=== PATIENT | female | born 1945 | race Caucasian/White ===

== ENCOUNTER → 2020-06-07 | Outpatient (CLI) | payer MEDICARE, OTHER ==
[~2020-06-07] MED LIST: ALEV220T22 PO; ATOR40TA75 PO; BENA10TA PO; BIOT1000 PO; CALC600C3 PO; CENT1TAB PO; CETI-24 PO; VITA100017 PO
== END ==
LOC: EDUNIT# 11:45 → M LABSMTC 12:28
PROVIDERS: ATTEND Anesthesiology
DX: Z20.828 Contact with and (suspected) exposure to other viral communicable diseases (principal)

== ENCOUNTER 2020-06-12 10:10 | Day surgery (SDC) | payer MEDICARE, OTHER ==
[~2020-06-12] VITALS: Ht 160 cm; Wt 65.3 kg
[~2020-06-12 10:10] MED LIST changes: +NS 1,000 ML IV ONE
[2020-06-12] MEDS ORDERED: LIDOCAINE 2% 100MG/5ML SDV (FOR ANES.) As Ordered ONE (10:49)
[2020-06-12] MEDS ORDERED: propofoL 200 MG/20 ML VIAL As Ordered ONE (10:49)
--- NOTE | 2020-06-12 12:53 | ROOR ---
Patient Name: Ivy Diaz Procedure Date: 06/12/2020 12:23 PM Date of : 1945 Age: 74 Room: [facility] Gender: Female Note Status: Finalized Procedure: Colonoscopy Indications: High risk colon cancer surveillance: Personal history of colonic polyps, Family history of advanced adenoma of the colon in a first-degree relative before age 60 years Providers: Jerald CALI MD Referring MD: RDORÍGUEZ CALL MD Requesting Provider: Medicines: Monitored Anesthesia Care Complications: No immediate complications. Procedure: Pre-Anesthesia Assessment: - The heart rate, respiratory rate, oxygen saturations, blood pressure, adequacy of pulmonary ventilation, and response to care were monitored throughout the procedure. The Colonoscope was introduced through the anus and advanced to the terminal ileum, with identification of the appendiceal orifice and IC valve. The colonoscopy was somewhat difficult due to a redundant colon. The patient tolerated the procedure well. The quality of the bowel preparation was good. Findings: The perianal and digital rectal examinations were normal. A 5 mm polyp was found in the splenic flexure. The polyp was sessile. The polyp was removed with a cold snare. Resection and retrieval were complete. Small Internal Hemorrhoids. The colon (entire examined portion) was redundant. Impression: - Redundant colon. - One 5 mm polyp at the splenic flexure, removed with a cold snare. Resected and retrieved. - Small Internal Hemorrhoids. - The colon is otherwise normal. Recommendation: - Repeat colonoscopy in 5 years for surveillance. Procedure Code(s): --- Professional --- 24255, Colonoscopy, flexible; with removal of tumor(s), polyp(s), or other lesion(s) by snare technique Diagnosis Code(s): --- Professional --- Q43.8, Other specified congenital malformations of intestine Z83.71, Family history of colonic polyps K63.5, Polyp of colon Z86.010, Personal history of colonic polyps CPT copyright 2019 [employer]. All rights reserved. The codes documented in this report are preliminary and upon measurement supervisor review may be revised to meet current compliance requirements. Jerald Cali MD Jerald CALI MD 06/12/2020 12:53:12 PM Electronically signed by Jerald CALI MD Number of Addenda: 0 Note Initiated On: 06/12/2020 12:23 PM Estimated Blood Loss: Estimated blood loss: none.
[2020-06-12 13:18] VITALS: BP 184/84
== END 2020-06-12 13:37 | disposition home or self-care (01) ==
LOC: M OPP 10:10
PROVIDERS: ATTEND Internal Medicine Gastroenterology
DX: Z86.010 Personal history of colon polyps (principal); Z83.71 Family history of colonic polyps; Q43.8 Other specified congenital malformations of intestine; K63.89 Other specified diseases of intestine; K64.8 Other hemorrhoids; Z09 Encounter for follow-up examination after completed treatment for conditions other than malignant neoplasm; Z79.899 Other long term (current) drug therapy; Z80.3 Family history of malignant neoplasm of breast; Z80.41 Family history of malignant neoplasm of ovary

== ENCOUNTER → 2023-11-25 | Outpatient (REF) | payer MEDICARE ==
[~2023-11-25] MED LIST changes: -NS 1,000 ML IV ONE
[2023-11-25 19:00] LABS: CREATININE,RANDOM URINE 59.4 MG/DL
[2023-11-25 19:01] LABS: TOTAL PROTEIN,RANDOM URINE < 6.0 MG/DL (0.0-14.0)
== END ==
LOC: M LAB REF 17:39
PROVIDERS: ATTEND Internal Medicine Nephrology
DX: R80.9 Proteinuria, unspecified (principal)